=== PATIENT | male | born 1960 | race Caucasian/White ===

== ENCOUNTER → 2020-02-21 | Outpatient (CLI) | payer BC ==
--- NOTE | 2020-02-21 12:57 | RADIOLOGY REPORT (SQ) ---
EXAM DESCRIPTION: CHEST 2 VIEWS IMAGES COMPLETED DATE/TIME: 02/21/2020 12:44 pm REASON FOR STUDY: (U07.1)COVID-19 COMPARISON: None. EXAM PARAMETERS: NUMBER OF VIEWS: two views TECHNIQUE: Digital Frontal and Lateral radiographic views of the chest acquired. RADIATION DOSE: NA LIMITATIONS: none FINDINGS: LUNGS AND PLEURA: Questionable faint density in the mid right lung versus overlapping ribs . Mild interstitial prominence. No lobar infiltrates. No large pleural effusion. No pneumothorax. MEDIASTINUM AND HILAR STRUCTURES: No masses or contour abnormalities. HEART AND VASCULAR STRUCTURES: Heart normal size. No evidence for failure. BONES: No acute findings. HARDWARE: None in the chest. OTHER: No other significant finding. IMPRESSION: POSSIBLE FAINT AIRSPACE DISEASE IN THE MID RIGHT LUNG VERSUS ARTIFACT FROM OVERLAPPING R IBS. NO LOBAR INFILTRATES OR PLEURAL EFFUSIONS. TECHNICAL DOCUMENTATION: JOB ID: [id number] 2010 [employer]- All Rights Reserved Reading location - IP/workstation name: [email or web address]
== END ==
LOC: RAD 12:28
PROVIDERS: ATTEND Nurse Practitioner
DX: U07.1 COVID-19 (principal)
CPT/HCPCS: 71046